=== PATIENT | female | born 1990 | race Caucasian/White ===

== ENCOUNTER → 2021-08-13 | Day surgery (SDC) | payer OTHER ==
[~2021-08-13] VITALS: Ht 170.2 cm; Wt 79.4 kg
[~2021-08-13] MED LIST: OMEPRAZOLE40 MG PO; SPRINTEC 28 DA1 EACH PO
[2021-08-13 11:26] LABS: HCG (URINE) SCREEN NEGATIVE (NEGATIVE)
[2021-08-13 12:01] LABS: HCT 38.2 % (37.0-47.0); HGB 12.4 g/dl (12.5-16.0); MCH 30.2 pg (25.0-31.0); MCHC 32.5 g/dL (32.0-36.0); MCV 92.9 fL (78.0-100.0); MPV 10.7 fL (6.0-9.5); RBC 4.11 M/uL (4.20-5.40); RDW 13.3 % (11.5-14.0); WBC 5.8 K/uL (4.0-10.5)
== END | disposition home or self-care (01) ==
LOC: FAS 10:58
PROVIDERS: Legal Medicine
DX: M67.442 Ganglion, left hand (principal); K21.9 Gastro-esophageal reflux disease without esophagitis; F17.200 Nicotine dependence, unspecified, uncomplicated; Z79.899 Other long term (current) drug therapy
CPT/HCPCS: 36415; 84703; J0690; J1100; J1170; J1885; J2250; J2310; J2405; J2704; J3010; J7120